=== PATIENT | female | born 1975 | race Caucasian/White ===

== ENCOUNTER 2020-08-10 13:53 | Inpatient (IN) | payer SELFPAY ==
[~2020-08-10] VITALS: Ht 157.5 cm; Wt 59.0 kg
[2020-08-10 13:58] VITALS: Ht 157.5 cm; Wt 59.0 kg
[2020-08-10 15:35] LABS: BASOPHIL % 0.3 % (0.2-1.3)
[2020-08-10 15:37] LABS: PLATELET COUNT 426 x10^3mcL (179-408); RED CELL DISTRIBUTION WIDTH 15.2 % (12.3-17.7)
[2020-08-10 15:45] LABS: CALCIUM 9.7 mg/dL (8.5-10.1); CARBON DIOXIDE 21.3 mmol/L (21-32); CHLORIDE SERUM 101 mmol/L (98-107); CREATININE SERUM 0.7 mg/dL (0.6-1.0); GFR1 > 60 mL/min; GLUCOSE SERUM 103 mg/dL (74-106); SODIUM SERUM 133 mmol/L (136-145)
[2020-08-10 15:49] LABS: ALBUMIN 4.2 g/dL (3.4-5.0); ALKALINE PHOSPHATASE 86 U/L (46-116); ALT/SGPT 23 U/L (14-59); AMYLASE 105 U/L (25-115); AST/SGOT 19 U/L (15-37); BILIRUBIN TOTAL 0.8 mg/dL (0.20-1.00); LIPASE 153 IU/L (73-393)
[2020-08-10 15:50] LABS: TOTAL PROTEIN, SERUM 8.3 g/dL (6.4-8.2)
[2020-08-10 23:25] LABS: UA SPECIFIC GRAVITY 1.025 (1.005-1.035); microscopic required? YES; urine erythrocyte 2+ (NEGATIVE)
[2020-08-10 23:44] LABS: AMPHETAMINE QUAL UR NONE DETECTED (See below)
[2020-08-11 01:15] VITALS: BP 109/62
[2020-08-11 05:30] VITALS: BP 102/63
[2020-08-11 06:39] LABS: CALCIUM 8.3 mg/dL (8.5-10.1); CARBON DIOXIDE 20.6 mmol/L (21-32); CHLORIDE SERUM 108 mmol/L (98-107); CREATININE SERUM 0.6 mg/dL (0.6-1.0); GFR1 > 60 mL/min; GLUCOSE SERUM 117 mg/dL (74-106); MAGNESIUM 1.9 mg/dL (1.8-2.4); PHOSPHOROUS 3.3 mg/dL (2.5-4.9); SODIUM SERUM 139 mmol/L (136-145)
[2020-08-11 06:46] LABS: BASOPHIL % 0.1 % (0.2-1.3); PLATELET COUNT 335 x10^3mcL (179-408)
[2020-08-11 07:20] VITALS: BP 95/59
[2020-08-11 12:38] VITALS: BP 98/50
[2020-08-11 13:27] VITALS: BP 98/50
[2020-08-12 09:18] LABS: CHOLESTEROL/HDL RATIO 1.9
== END 2020-08-11 17:58 | disposition home or self-care (01) | DRG 854 ==
LOC: ED 13:53 → MU 21:08
PROVIDERS: Specialist; Surgery; ADMIT Internal Medicine; ATTEND Internal Medicine
PROC: 0DTJ4ZZ Resection of Appendix, Percutaneous Endoscopic Approach (ICD-10-PCS; principal; 2020-08-10 22:30)
DX: A41.9 Sepsis, unspecified organism (principal); K35.80 Unspecified acute appendicitis; E87.1 Hypo-osmolality and hyponatremia; Z98.51 Tubal ligation status; Z20.822 Contact with and (suspected) exposure to COVID-19
CPT/HCPCS: 90658; G0378; J0696; J1170; J1885; J2001; J2175; J2405; J2543; J3010; J3490; J7030; U0003